=== PATIENT | male | born 1940 | race Caucasian/White ===

== ENCOUNTER 2017-06-02 10:59 | Day surgery (SDC) | payer MEDICARE, OTHER ==
[2017-06-02] MEDS ORDERED: Lactated Ringers 1,000 ML IV SCH (11:00)
[2017-06-02] MEDS ORDERED: Sodium Chloride 0.9% 10 ML Syringe FLUSH PRN (11:00)
[2017-06-02] MEDS ORDERED: fentaNYL 100 MCG/2 ML SDV ONE ×2 (13:25→13:34)
[2017-06-02] MEDS ORDERED: Propofol 200 MG/20 ML SDV ONE ×2 (13:26→13:34)
[2017-06-02] MEDS ORDERED: Midazolam 1 MG/ML 2 ML SDV ONE ×2 (13:26→13:34)
--- NOTE | 2017-06-02 13:33 | PCM.PN ---
- General Info Date of Service: 06/02/17 - Review of Systems Systems Review Comment:: 76-year-old male referred by Chevy Horowitz for EGD and colonoscopy. He has a history of GERD. He also recently noted bright red blood per rectum. This is a new symptom for him. He has been having regular bowel movements. He has not had previous colonoscopy. I have discussed the proposed EGD and colonoscopy with the patient. Risks such as but not limited to bleeding and GI injury reviewed. He agrees to proceed. There is been no recent significant change to his health status other than the rectal bleeding. - Patient Data Vitals - Most Recent: Last Vital Signs Temp 98.8 F 06/02/17 11:50 Pulse 95 06/02/17 11:50 Resp 18 06/02/17 11:50 BP 128/84 06/02/17 11:50 Pulse Ox 95 06/02/17 11:50 Weight - Most Recent: 90.718 kg Med Orders - Current: Current Medications Lactated Ringer's (Ringers, Lactated) 1,000 mls @ 125 mls/hr IV ASDIRECTED NOAH Last Admin: 06/02/17 12:13 Dose: 125 mls/hr Sodium Chloride (Saline Flush) 10 ml FLUSH ASDIRECTED PRN PRN Reason: Keep Vein Open Discontinued Medications Fentanyl (Sublimaze) Confirm Administered Dose 100 mcg .ROUTE .STK-MED ONE Stop: 06/02/17 13:26 Midazolam HCl (Versed 1 Mg/Ml) Confirm Administered Dose 2 mg .ROUTE .STK-MED ONE Stop: 06/02/17 13:27 Propofol (Diprivan 20 Ml) Confirm Administered Dose 200 mg .ROUTE .STK-MED ONE Stop: 06/02/17 13:27 - Problem List Review Problem List Initiated/Reviewed/Updated: Yes - Assessment Assessment:: GERD Rectal bleeding - Plan Plan:: EGD and colonoscopy
--- NOTE | 2017-06-02 14:46 | PCM.OPNOTE ---
- General Post-Op/Procedure Note Date of Surgery/Procedure: 06/02/17 Operative Procedure(s): EGD and Colonoscopy with Polypectomy Findings: Small Hiatal Hernia with mild reflux esophagitis Multiple colon polyps Moderate Sigmoid Diverticulosis Internal hemorrhoids Pre Op Diagnosis: GERD. Rectal bleeding Post-Op Diagnosis: Hiatal hernia. Reflux esophagitis. Colon Polyps. Diverticulosis. Hemorrhoids Anesthesia Technique: MAC Primary Surgeon: Luis Trevizo Pathology: Colon Polyps Output, Urine Amount: 0 EBL in mLs: 0 Complications: None Condition: Good
--- NOTE | 2017-06-02 15:44 | OR ---
Date of Procedure: 06/02/2017 PREOPERATIVE DIAGNOSES: 1. Gastroesophageal reflux disease. 2. History of rectal bleeding. POSTOPERATIVE DIAGNOSES: 1. Reflux esophagitis. 2. Hiatal hernia. 3. Multiple colon polyps. 4. Sigmoid diverticulosis. 5. Internal hemorrhoids. OPERATION PERFORMED: Esophagogastroduodenoscopy and colonoscopy with polypectomy. INDICATIONS FOR SURGERY: This 76-year-old male is referred for upper and lower endoscopy. He has history of intermittent GERD symptoms and also was recently noted some rectal bleeding. FINDINGS: On upper endoscopy, the patient has a mild degree of esophagitis at the GE junction. There is also a small associated hiatal hernia. No visible evidence to suggest Mcgee esophagus or other serious abnormalities are noted. The patient's stomach and duodenum appeared normal. On colonoscopy, multiple polyps were noted. These include a 15 mm irregular pedunculated polyp in the sigmoid colon, 25 cm from the anal verge. A 5 mm sessile polyp in the descending colon, 40 cm from the anal verge. A sessile 7 mm polyp at the splenic flexure. A sessile 6 mm polyp in the transverse colon. The semi- pedunculated 7 mm polyp at the hepatic flexure. A pedunculated 8 mm polyp in the ascending colon, and a pedunculated 6 mm polyp in the cecum. The patient also has a moderate degree of sigmoid diverticulosis. There was some tortuosity in the sigmoid colon, but no sign of acute inflammation. The patient also has some [id number] degree of internal hemorrhoids. No active bleeding seen during today's exam. PROCEDURE IN DETAIL: The patient was taken to the operating room. He was given intravenous sedation and his throat was topically anesthetized. With the patient in the left lateral decubitus position, the esophagus was intubated with the Olympus gastroscope. This was carefully advanced under direct visualization through the esophagus, stomach, and into the duodenum where examination to the third portion was performed. After carefully examining the duodenum, the scope was withdrawn back into the stomach where full examination including retroflexed examination of the fundus was carried out. The GE junction was carefully examined and then the esophagus was re-examined as the scope was withdrawn. Attention was then turned to colonoscopy. Digital rectal exam shows no rectal masses. The Olympus colonoscope was inserted into the rectum. Retroflexed examination of the rectal canal was performed. The scope was then carefully advanced under direct visualization through the entire length of the colon until the cecum was reached. Cecal acquisition was confirmed by noting the normal internal cecal anatomy as well as identifying the light to transilluminate the abdominal wall in the right lower quadrant. After examining the cecum, the scope was slowly withdrawn sequentially re-examining the colonic segments. During insertion and withdrawal of the scope, the above-described polyps were identified. As they were seen, each removed with a cautery snare and retrieved into a polyp trap. No sign of bleeding or any other complication was noted at the polypectomy sites. After the colon had been completely examined, the scope was removed and the patient was taken from the operating room in satisfactory condition. ESTIMATED BLOOD LOSS: Zero. COMPLICATIONS: None. PROGNOSIS: Good. RAQUEL Trevizo MD /[id number]
== END 2017-06-02 16:19 | disposition home or self-care (01) ==
LOC: LL.SDS 10:59
PROVIDERS: ATTEND Surgery
DX: K21.0 Gastro-esophageal reflux disease with esophagitis (principal); K44.9 Diaphragmatic hernia without obstruction or gangrene; K57.30 Diverticulosis of large intestine without perforation or abscess without bleeding; K64.8 Other hemorrhoids; D12.0 Benign neoplasm of cecum; D12.2 Benign neoplasm of ascending colon; D12.3 Benign neoplasm of transverse colon; D12.4 Benign neoplasm of descending colon; I10 Essential (primary) hypertension; E78.5 Hyperlipidemia, unspecified; Z88.0 Allergy status to penicillin; Z79.82 Long term (current) use of aspirin
CPT/HCPCS: 00740; 00810-QZ; 00813; 88305; J2250; J2704; J3010; J7120

== ENCOUNTER 2017-11-17 09:57 | Day surgery (SDC) | payer MEDICARE, OTHER ==
[2017-11-17] MEDS ORDERED: Lactated Ringers 1,000 ML IV SCH (10:15)
[2017-11-17] MEDS ORDERED: Sodium Chloride 0.9% 10 ML Syringe FLUSH PRN (10:15)
[2017-11-17] MEDS ORDERED: Propofol 200 MG/20 ML SDV ONE ×3 (12:11→13:07)
[2017-11-17] MEDS ORDERED: Midazolam 1 MG/ML 2 ML SDV ONE ×2 (12:11→12:15)
--- NOTE | 2017-11-17 12:17 | PCM.PN ---
- General Info Date of Service: 11/17/17 - Review of Systems Systems Review Comment:: 76-year-old male with colonoscopy 6 months ago which showed multiple colon polyps including a large sigmoid colon polyp that had high-grade dysplasia. He comes today for surveillance colonoscopy.He is medically stable to proceed today. There has been no recent changes in his health status. He states that his bowels have been moving well without any evidence of bleeding. I discussed the proposed colonoscopy with the patient. He agrees to proceed accepting risks. - Patient Data Vitals - Most Recent: Last Vital Signs Temp 98.2 F 11/17/17 11:11 Pulse 81 11/17/17 11:11 Resp 18 11/17/17 11:11 BP 150/95 H 11/17/17 11:11 Pulse Ox 95 11/17/17 11:11 Weight - Most Recent: 90.718 kg Med Orders - Current: Current Medications Lactated Ringer's (Ringers, Lactated) 1,000 mls @ 70 mls/hr IV ASDIRECTED NOAH Last Admin: 11/17/17 11:10 Dose: 70 mls/hr Sodium Chloride (Saline Flush) 10 ml FLUSH ASDIRECTED PRN PRN Reason: Keep Vein Open Discontinued Medications Midazolam HCl (Versed 1 Mg/Ml) Confirm Administered Dose 2 mg .ROUTE .STK-MED ONE Stop: 11/17/17 12:12 Propofol (Diprivan 20 Ml) Confirm Administered Dose 200 mg .ROUTE .STK-MED ONE Stop: 11/17/17 12:12 - Problem List Review Problem List Initiated/Reviewed/Updated: Yes - Assessment Assessment:: history of colon polyps with dysplasia - Plan Plan:: colonoscopy
--- NOTE | 2017-11-17 13:10 | PCM.OPNOTE ---
- General Post-Op/Procedure Note Date of Surgery/Procedure: 11/17/17 Operative Procedure(s): colonoscopy with polypectomy Findings: small colon polyps Previous dysplastic polyp now completely gone Sigmoid diverticulosis Pre Op Diagnosis: history of dysplastic colon polyps Post-Op Diagnosis: colon polyps. Diverticulosis Anesthesia Technique: MAC Primary Surgeon: Luis Trevizo Pathology: olon polyps Output, Urine Amount: 0 EBL in mLs: 3 Complications: None Condition: Good
--- NOTE | 2017-11-17 15:47 | OR ---
Date of Procedure: 11/17/2017 PREOPERATIVE DIAGNOSIS: History of dysplastic colon polyps. POSTOPERATIVE DIAGNOSES: Colon polyps and diverticulosis. OPERATIONS PERFORMED: Colonoscopy with polypectomy. INDICATIONS FOR SURGERY: This 76-year-old male underwent colonoscopy 6 months ago at which time a large sigmoid colon polyp was removed which contained high- grade dysplasia. He comes today to be sure that the polyp has completely gone and no other areas of concern are noted. FINDINGS: Two polyps were noted on today's exam. A 5-mm sessile polyp in the sigmoid colon, 15 cm from the anal verge, and a 9-mm sessile polyp noted in the cecum. The area where the previous dysplastic polyp had been located was now completely clear. There was no visible evidence of residual polyp, scar, or any new pathology in the sigmoid region other than moderate sigmoid diverticulosis. DESCRIPTION OF PROCEDURE: The patient was taken to the operating room. He was given intravenous sedation, and with him in the left lateral decubitus position, digital rectal exam was performed showing no rectal masses. The Olympus colonoscope was inserted into the rectum. Retroflexed examination of the rectal canal was performed. The scope was then advanced into the sigmoid region where the above-described sigmoid colon polyp was identified. It was removed with a cautery snare and retrieved into a polyp trap. The scope was then advanced further into the sigmoid where the large dysplastic polyp had previously been located. This area was carefully examined and no evidence of residual polyp or any other polypoid tissue was noted in this region. The sigmoid colon was negotiated carefully with the colonoscope despite its some tortuosity. The scope was then carefully advanced to the cecum. Cecal acquisition was confirmed by noting the normal internal cecal anatomy and identifying the light to transilluminate the abdominal wall in the right lower quadrant. In the cecum, there was a sessile polyp noted between folds in the cecum. An attempt was made to remove this with cautery snare, but I was not able to get the snare on the polyp in a manner which would allow me to remove the polyp safely, so the polyp was removed with multiple bites of the biopsy forceps. The polyp appeared to be completely removed with this maneuver. The scope was then slowly withdrawn sequentially re-examining the colonic segments until the entire colon and rectum had been fully examined. The scope was removed and the patient was taken from the operating room in satisfactory condition. ESTIMATED BLOOD LOSS: 3 mL. COMPLICATIONS: None. PROGNOSIS: Good. RAQUEL Trevizo MD /[id number] MTDD
== END 2017-11-17 14:12 | disposition home or self-care (01) ==
LOC: LL.SDS 09:57
PROVIDERS: ATTEND Surgery
DX: D12.0 Benign neoplasm of cecum (principal); K63.5 Polyp of colon; K57.30 Diverticulosis of large intestine without perforation or abscess without bleeding; I10 Essential (primary) hypertension; E78.5 Hyperlipidemia, unspecified; K21.9 Gastro-esophageal reflux disease without esophagitis; Z86.010 Personal history of colon polyps; Z79.899 Other long term (current) drug therapy; Z88.0 Allergy status to penicillin
CPT/HCPCS: J2250; J2704; J7120

== ENCOUNTER 2019-11-15 10:01 | Day surgery (SDC) | payer MEDICARE, OTHER ==
[2019-11-15] MEDS ORDERED: Sodium Chloride 0.9% 10 ML Syringe FLUSH PRN (10:15)
[2019-11-15] MEDS ORDERED: Propofol 200 MG/20 ML SDV ONE ×2 (10:37→11:43)
[2019-11-15] MEDS: Lactated Ringers 1,000 ML IV SCH (11:17)
--- NOTE | 2019-11-15 11:47 | PCM.PN ---
- General Info Date of Service: 11/15/19 - Review of Systems Systems Review Comment:: 78-year-old male here for surveillance colonoscopy. He has a history of dysplastic colon polyps and his last colonoscopy was 2 years ago. He states he has had no recent changes in bowel pattern or rectal bleeding. His recent history and physical is reviewed and no significant changes are noted. I have discussed the proposed colonoscopy with the patient. He agrees to proceed excepting risks. - Patient Data Vitals - Most Recent: Last Vital Signs Temp 97.4 F 11/15/19 11:00 Pulse 86 11/15/19 11:00 Resp 18 11/15/19 11:00 BP 161/101 H 11/15/19 11:00 Pulse Ox 96 11/15/19 11:00 Weight - Most Recent: 90.718 kg Med Orders - Current: Current Medications Lactated Ringer's (Ringers, Lactated) 1,000 mls @ 125 mls/hr IV ASDIRECTED NOAH Last Admin: 11/15/19 11:17 Dose: 125 mls/hr Documented by: Sodium Chloride (Saline Flush) 10 ml FLUSH ASDIRECTED PRN PRN Reason: Keep Vein Open Discontinued Medications Propofol (Diprivan 20 Ml) Confirm Administered Dose 400 mg .ROUTE .STK-MED ONE Stop: 11/15/19 10:38 Sepsis Event Note - Focused Exam Vital Signs: Vital Signs Temp Pulse Resp BP Pulse Ox 11/15/19 11:00 97.4 F 86 18 161/101 H 96 Date Exam was Performed: 11/15/19 Time Exam was Performed: 11:45 - Problem List Review Problem List Initiated/Reviewed/Updated: Yes - My Orders Last 24 Hours: My Active Orders 11/15/19 10:15 Patient Status [ADT] Routine Peripheral IV Care [RC] . DIRECTED Verify Patient Consent Obtain [RC] ASDIRECTED Lactated Ringers [Ringers, Lactated] 1,000 ml IV ASDIRECTED Sodium Chloride 0.9% [Saline Flush] 10 ml FLUSH ASDIRECTED PRN Peripheral IV Insertion Adult [OM.PC] Routine - Assessment Assessment:: History of colon polyps - Plan Plan:: Colonoscopy
--- NOTE | 2019-11-15 12:25 | PCM.OPNOTE ---
- General Post-Op/Procedure Note Date of Surgery/Procedure: 11/15/19 Operative Procedure(s): Colonoscopy with Polypectomy Findings: Small cecal and sigmoid polyps Moderate sigmoid diverticulosis Pre Op Diagnosis: History of colon polyps Post-Op Diagnosis: Colon polyps. Diverticulosis Anesthesia Technique: MAC Primary Surgeon: Luis Trevizo Pathology: Colon polyps EBL in mLs: 0 Complications: None Condition: Good
--- NOTE | 2019-11-15 16:25 | OR ---
Date of Procedure: 11/15/2019 PREOPERATIVE DIAGNOSIS: History of colon polyps. POSTOPERATIVE DIAGNOSES: Colon polyps and sigmoid diverticulosis. OPERATIONS PERFORMED: Colonoscopy with polypectomy. INDICATIONS FOR SURGERY: This 78-year-old male has a known history of dysplastic colon polyps in the past. He comes for surveillance colonoscopy. FINDINGS: Two small polyps were noted in the colon. They were 5 mm polyps, one in the cecum and one in the sigmoid colon approximately 25 cm from the anal verge. There was also moderate degree of diverticulosis in the sigmoid region, although this does not appear to be acutely inflamed. DESCRIPTION OF PROCEDURE: The patient was taken to the operating room. He was given intravenous sedation, and with him in the left lateral decubitus position, digital rectal exam was performed showing no rectal masses. The Olympus colonoscope was inserted into the rectum. Retroflexed examination of the rectal canal was performed. The scope was then carefully advanced under direct visualization through the entire length of the colon until the cecum was reached. Cecal acquisition was confirmed by noting the normal internal cecal anatomy including the appendiceal orifice and ileocecal valve. The light was also noted to transilluminate the abdominal wall of right lower quadrant. While examining the cecum, a small cecal polyp was identified. This was removed with a cautery snare. A portion of the polyp was retrieved and submitted for pathology. The remainder of the polyp was destroyed with cautery. The scope was then slowly withdrawn sequentially re-examining the colonic segments. In the sigmoid region, an additional polyp was identified. This was removed with a cautery snare and retrieved. Examination was then completed, and after the entire colon and rectum had been fully examined, the scope was removed, and the patient was taken from the operating room in satisfactory condition. ESTIMATED BLOOD LOSS: Zero. COMPLICATIONS: None. PROGNOSIS: Good. RAQUEL Trevizo MD /[id number]
== END 2019-11-15 13:20 | disposition home or self-care (01) ==
LOC: LL.SDS 10:01
PROVIDERS: ATTEND Surgery
DX: Z12.11 Encounter for screening for malignant neoplasm of colon (principal); D12.0 Benign neoplasm of cecum; K57.30 Diverticulosis of large intestine without perforation or abscess without bleeding; I10 Essential (primary) hypertension; E78.5 Hyperlipidemia, unspecified; K21.9 Gastro-esophageal reflux disease without esophagitis; B35.1 Tinea unguium; H61.23 Impacted cerumen, bilateral; Z86.010 Personal history of colon polyps; Z98.890 Other specified postprocedural states; Z79.899 Other long term (current) drug therapy; Z88.0 Allergy status to penicillin
CPT/HCPCS: J2704; J7120

== ENCOUNTER 2022-10-14 11:07 | Day surgery (SDC) | payer MEDICARE, OTHER ==
[~2022-10-14 11:07] MED LIST: Midazolam 1 MG/ML 2 ML SDV ONE; Propofol 200 MG/20 ML SDV ONE
[2022-10-14] MEDS ORDERED: Sodium Chloride 0.9% 10 ML Syringe FLUSH PRN (11:15)
[2022-10-14] MEDS: Lactated Ringers 1,000 ML IV SCH (12:14)
== END 2022-10-14 13:35 | disposition home or self-care (01) ==
LOC: LL.SDS 11:07
PROVIDERS: ATTEND Surgery
DX: Z12.11 Encounter for screening for malignant neoplasm of colon (principal); D12.0 Benign neoplasm of cecum; K57.30 Diverticulosis of large intestine without perforation or abscess without bleeding; I10 Essential (primary) hypertension; R30.9 Painful micturition, unspecified; M20.42 Other hammer toe(s) (acquired), left foot; K21.9 Gastro-esophageal reflux disease without esophagitis; E78.5 Hyperlipidemia, unspecified; L97.529 Non-pressure chronic ulcer of other part of left foot with unspecified severity; Z86.010 Personal history of colon polyps; Z79.899 Other long term (current) drug therapy; Z95.0 Presence of cardiac pacemaker
CPT/HCPCS: J7120